=== PATIENT | female | born 1985 | race Caucasian/White ===

== ENCOUNTER 2017-05-04 05:00 | Inpatient (IN) | payer OTHER, SELFPAY ==
[2017-05-04] MEDS: Lactated Ringers 1,000 ML 50 ML IV ×4 (06:00→12:24)
[2017-05-04 06:18] VITALS: BMI 26.4
[2017-05-04 06:38] LABS: Hemoglobin 12.4 g/dl (12.0-15.0); Mean Corp Hgb Conc 33.5 g/gl (32-36); Mean Corpuscular Volume 83.5 fL (81-99); Mean Platelet Vol. 12.5 fl (6.2-12.0); Platelet Count 152 K/mm3 (150-450); RBC Distribution Width CV 14.1 % (11.6-14.6); RBC Distribution Width SD 42.8 fl (35.1-43.9); Red Blood Count 4.43 M/mm3 (4.2-5.4); White Blood Count 13.2 K/mm3 (4.4-11.0)
[2017-05-04 07:12] LABS: Scan Indicated on CBC? Y/N NO
[2017-05-04] MEDS: Amnioinfusion- 0.9% NS 1,000 ML IV.SOLN. INTRA-UTER ×2 (07:40→12:30)
--- NOTE | 2017-05-04 12:38 | PCM.PN.BLA ---
Progress Note LABOR PROGRESS NOTE Epidural in place. Escobedo inserted earlier 1200 cc drained with insertion AVSS IFM placed d/t variability. Min variability with small accels and early decelerations noted. Occasional variable (mild) UCs appear adequate by mVU's q 2-3 mins CX: 2/80/-2 per RN check with scalp lead placement A/P: Thick mec stained fluid. IUPC placed for amnioinfusion and to monitor adequacy of UCs. UCs appear adequate but still prodromal labor. Continue spont labor after AROM Category I tracing overall. Will allow labor to continue. Pt and support persons aware that peds to be present for delivery.
--- NOTE | 2017-05-04 14:56 | PCM.PN.BLA ---
Progress Note LABOR PROGRESS NOTE IFM: 140-150s with min to avg variability Accels noted. Occasional late. earlies UCs q 2-3 and adequate mVUs Per nurse report to our ofc, continued meconium but less thick. CX: 580/-2 A/P: 39 6/7 wk early labor. Admitted AROM with thick mec. Amnioinfusion continues. Entering early active labor. Continue labor as category I tracing.
[2017-05-04] MEDS: Oxytocin 30 units/NS 500 ml 30 UNITS/500 ML IV.SOLN 334 UNITS IV (17:28)
--- NOTE | 2017-05-04 17:38 | PLAC_PTH ---
PATIENT: CAROLINA JONES LOC: [facility] U#:[id number] AGE/SX: 31/F ROOM: WP016 RE05/04/[address]: Dr. Anya Guerra MD : 1985 BED: 1 DIS: 05/05/2017 SPEC #: [id number] RECD: 05/04/17 23:03 STATUS: NATY JUSTINE #: [id number] ABA: 05/04/17 17:[address]: Anya Guerra DEPT: SURGICAL PATHOLOGY RECD BY: Hitesh Granado ENTERED: 05/05/17 09:02 SP TYPE: PLACENTA OTHR DR: Dr. Damian Abdi MD Tissues: Placenta, NOS Procedures: Surgery Specimen Level V HEADER OPERATION: Vaginal delivery PRE-OP DIAGNOSIS: Thick meconium TISSUE SUBMITTED: Placenta MICROSCOPIC DIAGNOSIS Placenta: Placental disc - third trimester placenta (442 gm). - Focal infused calcification, maternal surface. Membranes ? pigment-laden macrophages consistent with meconium staining. - Minimal acute chorioamnionitis. Umbilical cord - three blood vessels and minimal acute funisitis. DARCI:alana 05/07/17 MICROSCOPIC DESCRIPTION Slides are reviewed. GROSS DESCRIPTION SPECIMEN: PLACENTA / CLINICAL INFORMATION: A. Weight: 2.593 kg B. Gestational Age: 39 weeks C. Sex: Female PLACENTAL WEIGHT (POST FIXATION): 442 gm PLACENTAL DIMENSIONS: 19 x 18 x 2.5 cm PLACENTAL SHAPE: Usual ovoid PLACENTAL WEIGHT FOR GESTATIONAL AGE: Within 10-99th percentile MEMBRANES - Present A. Insertion: Marginal B. Site of rupture from edge: 3 cm from edge of placental disc C. Color of membrane: Shahid-greenish, mucoidy consistent with meconium staining. D. Abnormalities: None UMBILICAL CORD - Present A. Color: Shahid-bower B. Insertion: Paracentral C. Length: 42 cm D. Diameter: 1.2 cm E. Number of vessels: Three F. Abnormalities: A few false knots are noted. PLACENTAL DISC - Present A. Color of surface: Shahid-bower B. surface abnormalities: None C. Maternal cotyledons: Intact with minimal tears D. Attached retro placental clot: No clot E. Cut surface: Dark red and spongy F. Lesions: None G. Separate clot: Absent SECTIONS SUBMITTED: 1. Membrane roll 2. Cord, maternal end 3. Cord, end 4. Placental disc, and maternal surfaces 5. Placental disc, and maternal surfaces 6. Placental disc, and maternal surfaces SJ:alana 05/06/17 TC:2 CPT: 45339
--- NOTE | 2017-05-04 17:43 | PCM.OB.VAG ---
Vaginal Delivery Maternal Presentation: Active Labor Amniotic Membrane Rupture Type: Artificial Amniotic Fluid Description: Thick meconium Final PEÑA: 05/05/17 Gestational age: 39 Weeks and 6 Days [place] doctor who attended delivery (if requested by OB): Ingris Mas Date of Procedure: 05/04/17 Pre-Operative Diagnosis: 39 6/7 wk labor Post-Operative Diagnosis: same Surgery/ Procedure Performed: Spontaneous Vaginal Delivery Type of Anesthesia: Epidural Description of Procedure: of a gaines viable female over intact perineum Head delivered ROP. Nuchal cord x one reduced while shoulders delivering. Baby began to cry. OP and nares bulb suctioned and baby to maternal abdomen. Meconium stained . Dr. Harrington present for delivery Respiratory tx present also for delivery. Delayed cord clamping. Then cord clamped x two and cut. routine venous and arterial blood gas collected. Cord blood for typing. PP exam: no lacerations noted Placenta delivered by spont expulsion, expression 3V cord, normal appearing but thickly meconium stained. EBL 300 Pt and infant tolerated delivery well. To recovery, stable condition. Presentation: Vertex, ROP Placental Delivery Description: Spontaneous, Expressed Placenta Disposition: Sent to Pathology Cord Vessel Description: 3 Vessels Cord Gases drawn per routine: ABG, VBG Cord Entanglement: Around neck x 1, loose Estimated Blood Loss: 300 Infant A gender: Female (1 minute): 8 (5 minute): 9 Episiotomy Description: None Laceration: None Medications given after delivery: IV Pitocin Complications: None
--- NOTE | 2017-05-04 17:48 | OP.PCM_ITS ---
Vaginal Delivery Maternal Presentation: Active Labor Amniotic Membrane Rupture Type: Artificial Amniotic Fluid Description: Thick meconium Final PEÑA: 05/05/17 Gestational age: 39 Weeks and 6 Days [facility] doctor who attended delivery (if requested by OB): Ingris Mas Date of Procedure: 05/04/17 Pre-Operative Diagnosis: 39 6/7 wk labor Post-Operative Diagnosis: same Surgery/ Procedure Performed: Spontaneous Vaginal Delivery Type of Anesthesia: Epidural Description of Procedure: of a gaines viable female over intact perineum Head delivered ROP. Nuchal cord x one reduced while shoulders delivering. Baby began to cry. OP and nares bulb suctioned and baby to maternal abdomen. Meconium stained . Dr. Harrington present for delivery Respiratory tx present also for delivery. Delayed cord clamping. Then cord clamped x two and cut. routine venous and arterial blood gas collected. Cord blood for typing. PP exam: no lacerations noted Placenta delivered by spont expulsion, expression 3V cord, normal appearing but thickly meconium stained. EBL 300 Pt and infant tolerated delivery well. To recovery, stable condition. Presentation: Vertex, ROP Placental Delivery Description: Spontaneous, Expressed Placenta Disposition: Sent to Pathology Cord Vessel Description: 3 Vessels Cord Gases drawn per routine: ABG, VBG Cord Entanglement: Around neck x 1, loose Estimated Blood Loss: 300 A gender: Female (1 minute): 8 (5 minute): 9 Episiotomy Description: None Laceration: None Medications given after delivery: IV Pitocin Complications: None
--- NOTE | 2017-05-04 17:48 | PCM.DCVAG ---
Discharge Diet: No Restrictions Discharge Activity: May Shower, May Take a Tub Bath May resume sexual activity in: 4-6 weeks Additional Activity Instructions:: Nothing in the vagina for 4-6 weeks. You may return to work/school in 6 weeks. Additional Instructions: If you experience any of the following, contact your healthcare provider. Bleeding that soaks a pad every hour for 2 hours Fever 100.4 or higher Unrelieved abdominal pain Problems urinating (including inability to urinate or burning while urinating). Visual changes Severe headache Flu-like symptoms Pain or redness in one of both of your breasts Pain, warmth, tenderness or swelling in your legs, especially the calf area Frequent nausea and vomiting Symptoms of depression or anxiety If you experience any of the following, call 911 or go to the nearest Emergency Room. Chest pain Problems breathing Seizure activity Partial or complete paralysis of a body part, slurred speech, weakness or drooping of the face, or a sudden inability to walk or hold your balance Allergies/Adverse Reactions: Allergies No Known Allergies Allergy (Verified 05/04/17 06:18) Medications to take at Discharge Vit Calc,Iron,Folic [ Vitamins] 1 each PO DAILY 05/04/17 Orders to be completed after discharge: Electric breast pump Time Frame: 1 Year, Location: None Selected Please Follow Up With: Anya Guerra MD - [phone] When: Call to make an appointment with your doctor in 6 weeks. Primary Care Physician: Damian Abdi [Primary Care Provider] - Proposed Discharge Date: 05/06/17
--- NOTE | 2017-05-04 17:49 | DCINST_ITS ---
Discharge Diet: No Restrictions Discharge Activity: May Shower, May Take a Tub Bath May resume sexual activity in: 4-6 weeks Additional Activity Instructions:: Nothing in the vagina for 4-6 weeks. You may return to work/school in 6 weeks. Additional Instructions: If you experience any of the following, contact your healthcare provider. * Bleeding that soaks a pad every hour for 2 hours * Fever 100.4 or higher * Unrelieved abdominal pain * Problems urinating (including inability to urinate or burning while urinating) . * Visual changes * Severe headache * Flu-like symptoms * Pain or redness in one of both of your breasts * Pain, warmth, tenderness or swelling in your legs, especially the calf area * Frequent nausea and vomiting * Symptoms of depression or anxiety If you experience any of the following, call 911 or go to the nearest Emergency Room. * Chest pain * Problems breathing * Seizure activity * Partial or complete paralysis of a body part, slurred speech, weakness or drooping of the face, or a sudden inability to walk or hold your balance Allergies/Adverse Reactions: Allergies No Known Allergies Allergy (Verified 05/04/17 06:18) Medications to take at Discharge Vit Calc,Iron,Folic [ Vitamins] 1 each PO DAILY 05/04/17 Orders to be completed after discharge: Electric breast pump Time Frame: 1 Year, Location: None Selected Please Follow Up With: Anya Guerra MD - [phone] When: Call to make an appointment with your doctor in 6 weeks. Primary Care Physician: Damian Abdi [Primary Care Provider] - Proposed Discharge Date: 05/06/17
[2017-05-04] MEDS: Oxytocin 30 units/NS 500 ml 30 UNITS/500 ML IV.SOLN 167 UNITS IV (17:58)
[2017-05-04] MEDS: 0.9% Saline Lock 10 ML Syringe IV (19:44)
[2017-05-04] MEDS: Naproxen 250 MG Tablet PO (21:38)
[2017-05-05] VITALS (7 sets, daily range): BP systolic 111–140; BP diastolic 68–85; PULSE 60–80; RESP 16–19; TEMP 36.4–37.3; O2SAT 97–100
[2017-05-05] MEDS: Acetaminophen 500 MG Tablet PO (04:00)
[2017-05-05] MEDS: Naproxen 250 MG Tablet PO (06:45)
--- NOTE | 2017-05-05 08:14 | PCM.PN.OB ---
Subjective: PPD#1 Doing well. Baby nursing well. Minimal pain. States she feels great. Would be ok with going home today if baby is released - Physical Exam General: Alert, Oriented x3, Cooperative, No apparent distress HEENT: Atraumatic Neck: Supple Abdomen: Soft - Fundus firm NT at 2-3 cm inferior to umbilicus Neurological: Cranial nerves II-XII grossly intact Psych/Mental Status: Normal Affect Vital Signs Temp Pulse Resp BP 99.2 F H 68 17 120/68 05/05/17 00:00 05/05/17 04:13 05/05/17 04:13 05/05/17 04:13 Oxygen Delivery Method Room Air Weight: 76.657 kg Body Mass Index (BMI) 26.4 Intake and Output for Last 24 Hours 05/03/17 05/04/17 05/05/17 23:59 23:59 23:59 Intake Total 3825 / 3825 Output Total 3300 / 3300 Balance 525 / 525 Laboratory Tests Past 24 Hrs 05/04/17 18:55 Screen NEGATIVE Baby's Blood Type O POSITIVE Baby's GERARDO NEGATIVE Assessment/Plan PPD#1 Stable pp. Continue care
[2017-05-05] MEDS: Prenatal Vits Tablet 1 TABLET PO (14:50)
[2017-05-07 16:02] LABS: Pathology Specimen OB SEE PATHOLOGY REPORT
== END 2017-05-05 20:30 | disposition home or self-care (01) | DRG 775 ==
PROVIDERS: Obstetrics & Gynecology; Admitting Provider Obstetrics & Gynecology; Family Provider Family Medicine; PCP Family Medicine; Visit Provider Obstetrics & Gynecology
DX: O77.0 Labor and delivery complicated by meconium in amniotic fluid (principal); O69.81X0 Labor and delivery complicated by cord around neck, without compression, not applicable or unspecified; O76 Abnormality in fetal heart rate and rhythm complicating labor and delivery; Z3A.39 39 weeks gestation of pregnancy; Z37.0 Single live birth
CPT/HCPCS: 59050; 85027; 85461; 86850; 86900; 88307; 90384; 99218; J7030; J7120; 90686; A4216; G0378; J2790

== ENCOUNTER 2017-08-11 10:43 | Day surgery (SDC) | payer OTHER, SELFPAY ==
--- NOTE | 2017-08-11 | FALS_PTH ---
PATIENT: CAROLINA JONES LOC: [facility] – [place] U#:[id number] AGE/SX: 31/F ROOM: RE08/11/[address]: Dr. Anya Guerra MD : 1985 BED: DIS: 08/11/2017 SPEC #: [id number] RECD: 08/11/17 12:04 STATUS: NATY JUSTINE #: [id number] ABA: 08/11/17 00:[address]: Anya Guerra DEPT: SURGICAL PATHOLOGY RECD BY: Harry Valencia ENTERED: 08/12/17 12:05 SP TYPE: FALL TUBES OTHR DR: Dr. Ochoa Hung MD Tissues: Fallopian tube Procedures: Surgery Specimen Level IV HEADER OPERATION: Laparoscopy, bilateral salpingectomy PRE-OP DIAGNOSIS: Desire for sterilization TISSUE SUBMITTED: Bilateral fallopian tubes MICROSCOPIC DIAGNOSIS Bilateral fallopian tubes, salpingectomy: Bilateral fallopian tubes including fimbrial ends with mild acute and chronic inflammation. SJ:alana 08/13/17 COMMENT Case has been reviewed in consultation with Dr. De Santiago who concurs with the above diagnosis. IDC:AM MICROSCOPIC DESCRIPTION Slides are reviewed. GROSS DESCRIPTION Received is one container labeled with the patient's name and designated bilateral fallopian tubes. The specimen consists of two fallopian tubes including fimbrial ends. The fallopian tubes are not identified as right of left. One fallopian tube measures 7 cm in length and 0.6 cm in diameter. The second fallopian tube is received in two pieces. The distal part with fimbrial end measures 4 cm in length and 0.5 cm in diameter. The proximal part measures 2 cm in length. Supervisor Title sections are submitted in two cassettes as follows: 1 ? fallopian tube received intact, 2 ? fallopian tube received in two pieces. / DARCI:alana 08/12/17 TC:2 CPT: 41203 x2
--- NOTE | 2017-08-11 10:43 | DT_ITS ---
This patient was seen during an EMR downtime August 09, 2017 - August 16, 2017. This patient may have a combination of paper and electronic documentation or all paper documentation. All documentation is viewable within the e-chart portion of [facility] for each patient visit.
[2017-08-14 11:10] LABS: Internal QC Validated? YES +Cl - CLEAR BKGD; Pregnancy, Urine Negative Negative
== END 2017-08-11 15:10 | disposition home or self-care (01) ==
LOC: SDC 08-12 12:11
PROVIDERS: Family Provider Family Medicine; PCP Family Medicine; Visit Provider Obstetrics & Gynecology
PROC: (CPT 58661; principal; 2017-08-11 12:15)
DX: Z30.2 Encounter for sterilization (principal); Z87.891 Personal history of nicotine dependence; K21.9 Gastro-esophageal reflux disease without esophagitis
CPT/HCPCS: 00840; 58661; 81025; 88302; 88305; J7120